=== PATIENT | female | born 1970 ===

== ENCOUNTER 2019-04-18 06:03 | Observation (INO) | payer OTHER ==
[~2019-04-18] VITALS: Ht 175.3 cm; Wt 82.6 kg
[2019-04-18] VITALS (11 sets, daily range): BP systolic 96–142; BP diastolic 49–91
[~2019-04-18 06:03] MED LIST: Dexamethasone 20mg/5ml IVP ONE; ceFAZolin sod 1 GM in NS 55 ML IVPB ONE; ceFAZolin sod 1gm in NS 55ml IVPB ONE
[2019-04-18] MEDS ORDERED: LOSARTAN POTASS25 MG ORAL (07:58)
[2019-04-18] MEDS ORDERED: HYDROCODON-ACE1 EA16 ORAL (07:58)
[2019-04-18] MEDS ORDERED: CARISOPRODOL350 MG ORAL (07:58)
[2019-04-18] MEDS ORDERED: Midazolam 2mg/2ml Inj ONE (10:34)
[2019-04-18] MEDS ORDERED: fentaNYL 100 mcg/2 mL IV ONE (10:34)
[2019-04-18] MEDS ORDERED: Chloraseptic Spray 20mL Bottle ORAL PRN (10:45)
[2019-04-18] MEDS ORDERED: HYDROcodone/Acetamin 10/325 tab ORAL PRN (10:45)
[2019-04-18] MEDS ORDERED: Dexamethasone 20mg/5ml ONE (11:06)
--- NOTE | 2019-04-18 11:28 | Pre-Procedure Note/Attestation ---
Pre-Procedure Note/Attestation Complete Prior to Procedure Planned Procedure: not applicable Procedure Narrative: L4-L5, L5-S1 microdiscectomy decompression Indications for Procedure Pre-Operative Diagnosis: trauma, HNP radiculopathy Attestation I attest that I discussed the nature of the procedure; its benefits; risks and complications; and alternatives (and the risks and benefits of such alternatives ), prior to the procedure, with the patient (or the patient's legal professional healthcare representative). I attest that, if there was a reasonable possibility of needing a blood transfusion, the patient (or the patient's legal professional healthcare representative) was given the [facility] standardized written summary, pursuant to the Alec Vamshi Blood Safety Act ([place] Health and Safety Code # 1645, as amended). I attest that I re-evaluated the patient just prior to the surgery and that there has been no change in the patient's H&P, except as documented below: Omar Longoria MD Apr 18, 2019 11:28
[2019-04-18] MEDS ORDERED: Dexamethasone 20mg/5ml IVP ONE (11:30)
[2019-04-18] MEDS ORDERED: Thrombin 5000 units TOPIC ONE (11:50)
[2019-04-18] MEDS ORDERED: Bacitracin 50000 Units Vial ONE (11:50)
[2019-04-18] MEDS ORDERED: Gelfoam Size TOPIC ONE (11:50)
[2019-04-18] MEDS ORDERED: Sterile Water Irrig 1000ml IRRIG ONE (12:00)
[2019-04-18] MEDS ORDERED: NS Irrig 1000ml ONE (12:00)
[2019-04-18] MEDS ORDERED: Succinylcholine 20mg/ml 10ml vial ONE (12:00)
[2019-04-18] MEDS ORDERED: LR 1000ml ONE (12:00)
[2019-04-18] MEDS ORDERED: Lidocaine 1% Plain 30 ml INJ ONE (12:49)
[2019-04-18] MEDS ORDERED: Bupivacaine w/Epi 0.5% 30ml Vial INJ ONE (12:49)
[2019-04-18] MEDS ORDERED: Zemuron 50mg/5ml Inj IV ONE (13:05)
[2019-04-18] MEDS ORDERED: Morphine Sulfate 10mg/ml Inj ONE (13:23)
[2019-04-18] MEDS ORDERED: Neostigmine 1mg/ml 10ml Inj ONE (13:24)
[2019-04-18] MEDS ORDERED: Ketorolac 30mg Inj ONE (13:24)
[2019-04-18] MEDS ORDERED: Sodium Chloride 10ml vial INJ ONE (13:24)
[2019-04-18] MEDS ORDERED: Glycopyrrolate 0.2mg/ml 1ml Vial ONE (13:24)
--- NOTE | 2019-04-18 13:40 | Anethesia Preoperative Eval ---
Anesthesia Pre-op PMH/ROS General Date of Evaluation: Apr 18, 2019 Time of Evaluation: 12:10 Anesthesiologist: Froylan ASA Score: ASA 2 Mallampati Score Class I : Soft palate, uvula, fauces, pillars visible Class II: Soft palate, uvula, fauces visible Class III: Soft palate, base of uvula visible Class IV: Only hard plate visible Mallampati Classification: Class II Surgeon: Swati Diagnosis: Lumbar radiculopathy Surgical Procedure: L4-S1 laminotomy with decompression Anesthesia History: none Family History: no anesthesia problems Allergies: Uncoded Allergies: GRAPES (Allergy, Severe, 04/18/19) GENERAL FACIAL AND THROAT SWELLING PEACHES (Allergy, Severe, 04/18/19) GENERAL FACIAL AND THROAT SWELLING PEANUTS (Allergy, Severe, 04/18/19) GENERAL FACIAL AND THROAT SWELLING Medications: see eMAR Patient NPO?: Yes NPO Date: Apr 17, 2019 NPO Time: 2200 Past Medical History Cardiovascular: Denies: HTN, CAD, MA, valve dz, arrhythmia, other Pulmonary: Denies: asthma, COPD, ARTIS, other Gastrointestinal/Genitourinary: Reports: GERD; Denies: CRI, ESRD, other Neurologic/Psychiatric: Reports: depression/anxiety; Denies: dementia, CVA, TIA, other Endocrine: Denies: DM, hypothyroidism, steroids, other HEENT: Denies: cataract (L), cataract (R), glaucoma, SENECA (L), SENECA (R), other Hematology/Immune: Denies: anemia, DVT, bleeding disorder, other Musculoskeletal/Integumentary: Denies: OA, RA, DJD, DDD, edema, other PMH Narrative: as above PSxH Narrative: see H&P Anesthesia Pre-op Phys. Exam Physician Exam Last Vital Signs Date Time Temp Pulse Resp B/P (MAP) Pulse Ox O2 Delivery O2 Flow Rate FiO2 04/18/19 08:04 97.6 71 20 142/82 (102) 100 04/18/19 07:42 Room Air Constitutional: NAD Neurologic: CN 2-12 intact Cardiovascular: RRR, no M/R/G Respiratory: CTA Gastrointestinal: S/NT/ND Airway Exam Mallampati Score: Class II MO: full Neck: flexible ROM: full Teeth: intact Dentures: no upper, no lower Anesthesia Pre-op A/P Labs see chart Urine Test Test 04/18/19 06:20 Urine HCG, Qualitative Negative (NEGATIVE) Studies Pre-op Studies: EKG - NSR Risk Assessment & Plan Assessment: ASA 2 Plan: GA with ETT prone position neuromonitoring Status Change Before Surgery: No Pre-Antibiotics Drug: Ancef 2gr. Given Within 1 Hr of Incision: Yes Time Given: 12:50 Edy Galeano MD Apr 18, 2019 13:40
[2019-04-18] MEDS ORDERED: LR 1000ml 1,000 ML IVLG SCH (13:41)
[2019-04-18] MEDS ORDERED: Acetaminophen (Non formulary) 100 ML IV ONE (13:45)
[2019-04-18] MEDS ORDERED: Metoclopramide 10mg/2ml Inj IVP PRN (13:45)
[2019-04-18] MEDS ORDERED: Meperidine 50mg/ml Inj(FOR RIGORS ONLY) IV PRN (13:45)
[2019-04-18] MEDS ORDERED: Midazolam 2mg/2ml Inj IVP PRN (13:45)
[2019-04-18] MEDS ORDERED: Hydromorphone 0.5mg/0.5ml inj IVP PRN (13:45)
[2019-04-18] MEDS ORDERED: Ketorolac 30mg Inj IV PRN (13:45)
[2019-04-18] MEDS ORDERED: DiphenhydrAMINE 50mg/ml Inj IVP PRN (13:45)
[2019-04-18] MEDS ORDERED: Lidocaine 1% MPF 10mg/ml 5ml ONE (14:10)
--- NOTE | 2019-04-18 14:23 | Brief Operative Note ---
Immediate Post Operative Note Operative Note Pre-op Diagnosis: trauma, HNP radiculopathy Procedure: L4-L5 bilateral hemilaminotomy decompression L5-S1 microdiscectomy SSEP Mag Xray Post-op Diagnosis: same as pre-op Findings: consistent w/pre-op dx studies Surgeon: Swati Ph.D., M.D. Consumer Marketing Analyst: Miah ANNE Additional Surgeons: Dior ADKINS Xray Anesthesiologist: anesthesia Anesthesia: general Specimen: yes Complications: none Condition: stable Fluids: anesthesia Estimated Blood Loss: volume Drains: none Implant(s) used?: No Omar Longoria MD Apr 18, 2019 14:23
[2019-04-18] MEDS ORDERED: Naloxone 0.4mg/ml Inj IVP PRN (14:30)
--- NOTE | 2019-04-18 15:07 | Immediate Post-Op Evaluation ---
Immediate Post-Op Evalulation Immediate Post-Op Evalulation Procedure: L4-L5-S1 Laminotomy with decompression Date of Evaluation: Apr 18, 2019 Time of Evaluation: 15:06 IV Fluids: 1000 Blood Products: none Estimated Blood Loss: 100 Urinary Output: none Blood Pressure Systolic: 116 Blood Pressure Diastolic: 76 Pulse Rate: 64 Respiratory Rate: 20 O2 Sat by Pulse Oximetry: 98 Temperature (Fahrenheit): 97.6 Pain Score (1-10): 1 Nausea: No Vomiting: No Complications none Patient Status: reacts, patent, extubated, none Hydration Status: adequate Edy Galeano MD Apr 18, 2019 15:07
--- NOTE | 2019-04-18 15:56 | Diagnostic Imaging Report ---
INDICATION: Pain, intraoperative TECHNIQUE: Intraoperative imaging Fluoroscopy time: 4.1 seconds Total dose: 0.5576 mGym2 Total number of images: One COMPARISON: None FINDINGS: Intraoperative images document surgical tool projected posterior to the L5 vertebral segment. IMPRESSION: Intraoperative imaging, as described
--- NOTE | 2019-04-18 16:20 | NUR ---
INDUSTRIAL REHABILITATION CONSULTANT OFFICE CALLED SPOKE TO KAROL BESS . STATES SHE HAS PATIENTS PURSE AND JEWELRY . PATIENT ALSO AWARE AND AGREES " SHE CAN KEEP IT " CLAIMED BY PATIENT
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
--- NOTE | 2019-04-18 17:30 | NUR ---
NURSE NOTES: Pt assessed bandage is clean and intact. Able to move legs and feet. Bowels sounds active. Bilateral hand hand tool filer firm. IV site remains patent no signs of infiltration. Belongings are with pt such as clothing and phone. Other items of value given to occupational therapist. Has prescription in chart.
[2019-04-18] MEDS: D5 1/2NS 1,000 ML IV SCH (18:00)
[2019-04-18] MEDS: Dronabinol 2.5mg Cap ORAL SCH ×2 (18:29→21:39)
--- NOTE | 2019-04-18 18:30 | Operative Note - Dictated ---
DATE OF OPERATION: 04/18/2019 SURGEON: Omar Longoria M.D. FILM RENTAL CLERK: OMID Madrigal. ADDITIONAL SURGEON ASSIST: Montrell Santana M.D. ANESTHESIA: General with intubation. ESTIMATED BLOOD LOSS: 50 mL. COMPLICATIONS: None. POSTOP CONDITION: Good/stable. SPECIMENS: Disk fragment at L5-S1 to pathology. OPERATIVE PROCEDURE: 1. The patient's body habitus greater than 95th percentile for height increasing complexity of surgery. 2. L4-L5, bilateral hemilaminotomies with nerve root decompression . 3. L5-S1 microdiskectomy with nerve root decompression. 4. Intraoperative fluoroscopy interpreted by surgeon. 5. SSEP monitoring. COMPLICATIONS: None. DESCRIPTION OF PROCEDURE: The patient was brought to the operating room and in the supine position, general anesthesia with intubation was induced. IV antibiotics, IV Decadron were administered 30 minutes prior to incision time. The patient was carefully turned and positioned in the prone position. Lumbodorsal spine was sterilely prepped. A spinal needle was placed percutaneously under sterile conditions midline lumbar spine, cross-table image obtained demonstrating the correct level for incision placement. [place] are placed through dermis and epidermis into subcutaneous tissue. Level was marked. Needle removed. Back resterilely prepped and draped free in usual sterile fashion. A longitudinal midline incision overlying the appropriate intervals sharply placed through dermis and epidermis. Electrocautery dissection was carried through extensive subcutaneous tissue to the level of lumbodorsal fascia. Lumbodorsal fascia was incised bilaterally over the respective intervals. Identification was undertaken with fluoroscopic guidance. Markers in place. Marker position recorded. Markers removed. Subperiosteal dissection over respective lamina. L4-L5: Bilateral hemilaminotomies were performed under high-power magnification dissection and decompression. Severe bilateral facet hypertrophy with medial facet hypertrophy and lateral recess stenosis released. No dural tears or leaks noted anytime during the procedure. SSEP monitoring stable. Wound was irrigated with antibiotic-containing saline. Attention was turned to the L5-S1 interval where a hemilaminotomy bilateral left was undertaken. Decompression. Dissection lateral to the dural tube to the level of the herniated nucleus polyposis large left. Annulotomy followed microdiscectomy not exceeding 13 mm posterior anterior. Irrigation disk space. No further fragments. Gentle probing revealed no further fragments/compression of exiting nerve roots. No dural tears or leaks noted anytime during the procedure. Wound irrigated with antibiotic-containing saline. FloSeal applied. Sequential reapproximation of the lumbodorsal fascia, subcutaneous tissue, dermis and epidermis followed by staple sutures and sterile bandage. The patient was awakened, extubated in the operating room, after being transferred from a prone to supine position on the transport bed. Omar Longoria M.D. DR: Kelvin JOB#: [id number] CC: KAIT
[2019-04-18] MEDS: Docusate 100mg cap ORAL SCH (19:07)
--- NOTE | 2019-04-18 20:10 | NUR ---
NURSE NOTES: Tolerated clear liquid diet ,eager to eat, has not passed gas bowel sounds remain present . Call light in reach
--- NOTE | 2019-04-18 20:11 | NUR ---
HAND-OFF: Report given to Toma MCCLENDON.
--- NOTE | 2019-04-18 20:11 | NUR ---
NURSE NOTES:Patient received from Perla Schofield Patient denies any pain at this time .No s/s of distress noted . IV fluids infusing well . Patient bilateral scds ON . Patient posterior Back dressing C/Di/i. Patient ambulate to bathroom . safety and fall Implemented .patient instructed to uses call light when needed . Patient verbalized her understanding .will continue to monitor.
[2019-04-18] MEDS: ceFAZolin sod 1 GM in D5W 55 ML IV SCH (21:36)
[2019-04-18] MEDS: Morphine Sulfate 2mg/ml Inj(IV/IM USE ONLY) IM PRN (21:46)
[2019-04-19] VITALS: BP 120/77
[2019-04-19] MEDS: D5 1/2NS 1,000 ML IV SCH (02:08)
[2019-04-19] MEDS: Dronabinol 2.5mg Cap ORAL SCH ×2 (03:23→11:39)
[2019-04-19 04:00] VITALS: BP 138/76
[2019-04-19] MEDS: ceFAZolin sod 1 GM in D5W 55 ML IV SCH (05:24)
--- NOTE | 2019-04-19 07:44 | NUR ---
HAND-OFF: Report given to REMY Schofield
--- NOTE | 2019-04-19 07:44 | NUR ---
NURSE NOTES: WALKING ROUNDS DONE WITH OUTGOING RN. PATIENT ASLEEP BUT AROUSABLE. SURGICAL SITE ASSSESSED. DISCUSSED PLAN OF CARE FOR THE DAY. NEEDS MET AT THIS TIME. QUESTIONS ANSWERED. VERBALIZED UNDERSTANDING. CALL LIGHT WITHIN REACH. BED IN LOWEST AND LOCKED POSITION.
[2019-04-19 08:00] VITALS: BP 124/83
--- NOTE | 2019-04-19 08:00 | Progress Note ---
DATE: 04/19/2019 ACUTE PAIN MANAGEMENT PHYSICIAN PROGRESS NOTE SUBJECTIVE: Medication administration record reviewed. Medications include IV fluids, Colace, Pepcid, nicotine patch, Marinol, and Ancef. PRN needed medications include Valium, Phenergan, Zofran, Mylanta, morphine, [place], Benadryl, Chloraseptic sprays, Soma, Catapres, and Tylenol. LABORATORY STUDIES: April 19, 2019, test negative. OBJECTIVE: VITAL SIGNS: Within normal limits. Pain level 5/10 on the visual analog pain scale. Afebrile, pulse 67, respirations 18, blood pressure 138/76, and oxygen saturation 99% on room air. I spent over 60 minutes in consultation over the past 24 hours. I saw the patient at bedside with the nurse, KANDY Chua. I discussed the case with the surgeon, Dr. Longoria along with the orthopedic floor nurse, KANDY Diaz. Ms. Og did well overnight. Her lumbar spine surgery finished ____ was determined that she should stay overnight in the hospital before discharging. Overnight, she did ambulate out of bed to the restroom several times. She has had no nausea symptoms. Pain levels have been adequately controlled alternating with her scheduled Marinol along with p.r.n. doses of morphine, [place], and Valium. She shows no signs of oversedation. I did leave a prescription for Valium, Soma, and [place] for outpatient usage. Since she is tolerating oral intake, I will Hep-Lock her IV fluids. I have asked the nursing team to place the nicotine patch as the patient is having nicotine withdrawal agitation, which might exacerbate her postoperative pain. I will continue the scheduled Marinol on every 8 hours regimen, which seems to be effective. The patient has been voiding urine well. She is afebrile and has normal vital signs. Incentive spirometer usage was encouraged to encourage good pulmonary toilet with her tobacco usage. I did relocation counselor her to stop smoking. I have asked the nursing team to help arrange her hospital transportation to expedite discharge planning. I examined the lumbar spine wound and the dressing appears clean and dry. Tyson Mallory M.D. DR: DELGADO JOB#: [id number] CC:
--- NOTE | 2019-04-19 09:30 | NUR ---
NURSE NOTES: PATIENT SEEN BY Jf; SESSION WENT WELL. PATIENT INFORMED OF DISCHARGE TODAY.
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
[2019-04-19] MEDS: Docusate 100mg cap ORAL SCH (10:15)
--- NOTE | 2019-04-19 11:00 | NUR ---
NURSE NOTES: SPOKE TO KAROL BESS @ ATTY'S OFFICE. TRANSPORTATION TO [facility] ATTENDANT PT. @ 12:30 TODAY. DME EQUIPMENT PROVIDED PER P.T SUGGESTION.
[2019-04-19] MEDS: Morphine Sulfate 2mg/ml Inj(IV/IM USE ONLY) IM PRN (11:40)
[2019-04-19] MEDS ORDERED: VALIUM5 MG ORAL (11:49)
[2019-04-19] MEDS ORDERED: NORCO 10-325 T1 EACH ORAL (11:50)
[2019-04-19] MEDS ORDERED: SOMA350 MG PO (11:53)
[2019-04-19 12:00] VITALS: BP 119/83
--- NOTE | 2019-04-19 12:10 | 48 Hour Post Anesthesia Eval ---
Post Anesthesia Evaluation Procedure: L4-L5-S1 Laminotomy with decompression Date of Evaluation: Apr 19, 2019 Airway: patent Nausea: No Vomiting: No Hydration Status: adequate Cardiopulmonary Status: at baseline Mental Status/LOC: patient returned to baseline Post-Anesthesia Complications: 0 Follow-up care needed: N/A - further care as per primary team Yanna Montague MD Apr 19, 2019 12:10
--- NOTE | 2019-04-19 12:30 | NUR ---
NURSE NOTES: DISCHARGE INSTRUCTIONS AND PT. EDUCATION GIVEN WITH RX FOR HOME. REVIEWED S/S INFECTION AND SPINE PRECAUTIONS. VERBALIZED UNDERSTANDING. ALL BELONGINGS RETURNED TO PATIENT. ESCORTED BY STAFF TO CAR VIA WC.
[2019-04-19] MEDS ORDERED: D5 1/2NS 1000ml IV ONE (12:39)
[2019-04-19] MEDS ORDERED: Tubing IV Secondary IV ONE (12:39)
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
== END 2019-04-19 12:40 | disposition short-term general hospital (02) ==
LOC: SUR 06:03 → 3E 14:23
DX: M51.17 Intervertebral disc disorders with radiculopathy, lumbosacral region (principal); M54.5 Low back pain; K21.9 Gastro-esophageal reflux disease without esophagitis; F32.9 Major depressive disorder, single episode, unspecified; F41.9 Anxiety disorder, unspecified; M06.9 Rheumatoid arthritis, unspecified; F17.200 Nicotine dependence, unspecified, uncomplicated; F12.90 Cannabis use, unspecified, uncomplicated; Z91.018 Allergy to other foods; Z79.899 Other long term (current) drug therapy; Z91.010 Allergy to peanuts
CPT/HCPCS: 63030; 63035; 72020; 76000; 81025; 87081; 97116; 97161; 97530; J0330; J0690; J1100; J1885; J2175; J2250; J2270; J2405; J2710; J3010; 94003; 94150